=== PATIENT | female | born 1960 | race Caucasian/White ===

== ENCOUNTER 2020-10-13 13:33 | Emergency (ER) | payer OTHER, SELFPAY ==
[2020-10-13 13:37] VITALS: BP 149/72; PULSE 69; RESP 14; TEMP 37.1; O2SAT 100; BMI 19.4
--- NOTE | 2020-10-13 14:08 | DI.CT.S_ITS ---
PROCEDURE: CT HEAD/BRAIN WO CON INDICATIONS: Vision deficit TECHNIQUE: Noncontrast 4.5 mm thick angled axial sections acquired from the foramen magnum to the vertex, with coronal and sagittal reformats. For radiation dose reduction, the following was used: automated exposure control, adjustment of mA and/or kV according to patient size. COMPARISON: None. FINDINGS: Image quality: Excellent. CSF spaces: Basal cisterns are patent. No extra-axial fluid collections. The ventricles are symmetric in size and shape. Brain: No intracranial bleeds or masses. There is cerebral volume loss for age, with resultant ventricular and sulcal prominence. There are periventricular and deep white matter chronic small vessel ischemic changes. There is intracranial internal carotid artery atherosclerosis. Skull and face: Calvarium and visualized facial bones appear intact, without suspicious lesions. To the limits of the study, no focal orbital abnormality can be seen. Sinuses: Visualized sinuses and mastoids are clear. IMPRESSION: Normal noncontrast head CT for age, without an imaging explanation found for the patient's presenting symptoms. If it would be helpful for clinical management decision making, please consider a dedicated brain MRI (orbits protocol, without and with contrast) for further evaluation (assuming that there is no contraindication). Dictated by: Leon Carmona M.D. on 10/13/2020 at 14:26 Approved by: Leon Carmona M.D. on 10/13/2020 at 14:27
[2020-10-13 14:32] VITALS: BP 164/74; PULSE 68; RESP 18
--- NOTE | 2020-10-13 14:32 | ED_ITS ---
HPI - Neuro Symptoms/Deficit General Chief Complaint: Neuro Symptoms/Deficit Stated Complaint: streak in eye/sent by eye doctor/ava stroke Time Seen by Provider: 10/13/20 14:32 Source: patient Mode of arrival: Ambulatory Limitations: no limitations History of Present Illness HPI Narrative: This is a 60-year-old female comes emergency department with complaint of vision change in her right eye. Patient woke up with what she describes as a band which is green when her eyes closed and purple in her eyes open. She can see above and below it but not through the band. Patient states that it resolved but then returned. She does have a history of hypertension dyslipidemia. She takes a baby aspirin daily. She saw an information systems auditor on [place] which told her that there is possibly a change to the blood vessels. They told her they thought her retina looked normal. Patient denies any other symptoms. No headaches. No eye pain. No numbness, tingling or weakness. She has had vitreous detachment in the past. And was told she had a retinitis in her opposite eye in her 20s which they thought was maybe from a viral illness. On Anticoagulants: Yes (Aspirin 81mg today) Review of Systems Review of Systems ROS Unobtainable: All systems reviewed & are unremarkable except as noted in HPI and below Hematologic/Lymphatic On Anticoagulants: Yes (Aspirin 81mg today) Patient History Social History Smoking Status: Never smoker Smoking Status: Never smoker alcohol intake frequency: a few times a week Alcohol type: wine Substance Use Type: does not use Exam Narrative Exam Narrative: GEN: well nourished, well appearing female, alert and oriented x 3, patient appears to be in mild distress. HEENT: Atraumatic, pupils are equal round reactive to light, extraocular movements are intact, nares are clear, TMs are clear with no fluid, there is no conjunctival pallor. Throat is clear without any exudates, erythema, tonsillar enlargement or uvular deviation, normal speech. Visual acuity: see nurses note. General: no globe trauma Eyelids: normal inspection. Conjunctiva/Sclera: normal inspection. EOM: intact, no palsy/entrapment Pupils: PERRL, normal accomadation, pupil normal Anterior Chambers: normal inspection, no hypema Posterior: normal fundoscopic on right, left patient appears to have a crescent of opacification possible retinal tear. Nondilated eye exam HEART: Regular rate and rhythm without murmur, clicks, rubs. Pulses are equal in upper and lower extremities LUNGS:Lungs clear to auscultation, no wheezes, rales, crackles, chest moves symmetrically ABD:bowel sounds normal, soft, non-tender, no guarding, rebound, rigidity, no masses noted, no hepatosplenomegaly :No CVA tenderness MSCL: Non-tender, no muscle atrophy, muscles strength 5/5 upper and lower extremities, full range of motion, normal gait NEURO:CN 2-12 intact, sensation normal, finger nose finger test normal, heel camejo test normal, romberg normal Initial Vital Signs Initial Vital Signs: Vital Signs Temperature 98.8 F 10/13/20 13:37 Pulse Rate 69 10/13/20 13:37 Respiratory Rate 14 10/13/20 13:37 Blood Pressure 149/72 H 10/13/20 13:37 Pulse Oximetry 100 10/13/20 13:37 Scores NIH Stroke Scale Level of Conciousness: Alert, keenly responsive Ask month/age: Answers both questions correctly. Open/close eyes, close hand: Performs both tasks correctly Best gaze horizontal: Normal Visual lee: No visual loss Facial palsy: Normal symetrical movement Left arm drift: No drift for full 10 sec Right arm drift: No drift for full 10 sec Left leg drift: No drift for full 5 sec Right leg drift: No drift for full 5 sec Limb ataxia: Absent Sensory on face/arms/legs: Normal, no sensory loss Best language: No aphasia, normal Dysarthria: Normal Extinction or inattention: No abnormality Total NIH Stroke scale score: 0 Course Orders Ordered: ED Orders 10/13/20 13:55 Basic Metabolic Panel Stat CRP [C-Reactive Protein Quant] Stat Complete Blood Count AUTO DIFF Stat Erythrocyte Sedimentation Rate Stat 10/13/20 14:08 CT head/brain wo con Stat 10/13/20 15:06 EKG-12 Lead Stat Discontinued Medications Sodium Chloride (Normal Saline 0.9%) 1,000 mls @ 150 mls/hr IV CONT KATH Last Admin: 10/13/20 15:30 Dose: Not Given Documented by: KBRYERS Sodium Chloride (Normal Saline 0.9%) 1,000 mls @ 1,000 mls/hr IV BOLUS ONE Stop: 10/13/20 17:49 Last Admin: 10/13/20 17:23 Dose: Not Given Documented by: KBRYERS Consultations Consultation #1: Dr. Marsh, ophthalmology is happy to see the patient. Her lab work is not completed so they will return her to the department after their eye exam. Vital Signs Vital signs: Vital Signs - 8 hr 10/13/20 13:37 10/13/20 14:32 10/13/20 14:39 Temperature 98.8 F Pulse Rate 69 68 69 Respiratory Rate 14 18 14 Blood Pressure 149/72 H 164/74 H 164/70 H Pulse Oximetry 100 99 10/13/20 14:42 10/13/20 17:15 Temperature Pulse Rate 54 L Respiratory Rate 18 Blood Pressure 141/69 H 126/58 L Pulse Oximetry 100 MDM - Neuro Symptoms/Deficit Lab Data Result diagrams: 10/13/20 13:55 10/13/20 13:55 Labs: Lab Results 10/13/20 10/13/20 10/13/20 Range/Units 13:55 13:55 13:55 WBC 5.9 (4.5-11.0) X10^3/uL RBC 4.52 (4.0-5.2) X10^6/uL Hgb 13.9 (12.0-16.0) g/dL Hct 41.5 (36-46) % MCV 91.9 (80-100) fL MCH 30.9 (26-34) PG MCHC 33.6 (30-36) % RDW 13.5 (11.6-14.8) % Plt Count 219 (150-400) X10^3/uL Neut % (Auto) 70.1 (50-75) % Lymph % (Auto) 23.0 L (25-40) % [place] % (Auto) 5.4 (3-14) % Eos % (Auto) 0.9 L (2-4) % Baso % (Auto) 0.6 (0-2) % Neut # (Auto) 4200 (8100-4078) /uL Lymph # (Auto) 1400 (8638-1239) /uL [place] # (Auto) 300 (0-900) /uL Eos # (Auto) 100 (0-450) /uL Baso # (Auto) 0 (0-100) /uL ESR 7 (0-20) MM/HR Sodium (137-145) mmol/L Potassium (3.4-5.1) mmol/L Chloride (98-107) mmol/L Carbon Dioxide (22-32) mmol/L BUN (7-17) mg/dL Creatinine (0.52-1.04) mg/dL Estimated GFR (>60) mL/min BUN/Creatinine Ratio (6-22) Glucose (80-110) mg/dL Calcium (8.4-10.2) mg/dL C-Reactive Protein < 0.5 (<1.0) mg/dL 10/13/20 Range/Units 13:55 WBC (4.5-11.0) X10^3/uL RBC (4.0-5.2) X10^6/uL Hgb (12.0-16.0) g/dL Hct (36-46) % MCV (80-100) fL MCH (26-34) PG MCHC (30-36) % RDW (11.6-14.8) % Plt Count (150-400) X10^3/uL Neut % (Auto) (50-75) % Lymph % (Auto) (25-40) % [place] % (Auto) (3-14) % Eos % (Auto) (2-4) % Baso % (Auto) (0-2) % Neut # (Auto) (0052-0295) /uL Lymph # (Auto) (5234-9192) /uL [place] # (Auto) (0-900) /uL Eos # (Auto) (0-450) /uL Baso # (Auto) (0-100) /uL ESR (0-20) MM/HR Sodium 139 (137-145) mmol/L Potassium 4.1 (3.4-5.1) mmol/L Chloride 105 (98-107) mmol/L Carbon Dioxide 28 (22-32) mmol/L BUN 14 (7-17) mg/dL Creatinine 0.75 (0.52-1.04) mg/dL Estimated GFR > 60.0 (>60) mL/min BUN/Creatinine Ratio 18.7 (6-22) Glucose 116 H (80-110) mg/dL Calcium 9.5 (8.4-10.2) mg/dL C-Reactive Protein (<1.0) mg/dL MDM Narrative Medical decision making narrative: This is a 60-year-old female comes emergency department with complaint of a streak in her right eye with vision change. Patient was sent by an information systems auditor for possible stroke verses retinitis. Patient's head CT is negative. She had concerning eye exam for myself so I spoke with our local bindery machine setter who kindly saw the patient. Had a negative dilated eye exam with no changes to the vessels on his exam either. He suspected possibly ophthalmology come migraine but we did discuss that ESR CRP was included these are negative today. Labs do not show any other acute changes. Discussed with patient and plan for follow-up with outpatient. We also discussed they can potentially have TIA but seems less likely based on her symptoms and findings today she could increase her aspirin daily until she sees her primary care. Discharge Plan Departure Patient Disposition: Home Clinical Impression: Alteration in vision Activity Restrictions/Additional Instructions: Follow-up with your physician. Today your head CT is negative, your labs do not show any acute changes, including negative ESR and CRP. You also had a secondary evaluation by ophthalmology with Dr. Marsh who did not find any acute changes today. My suspicion for retinal artery occlusion is low at this time but it would be appropriate to take a daily aspirin for prevention. Please return for new or worsening symptoms, sudden vision loss, severe headaches, numbness, tingling or weakness, difficulty with speech or other new or concerning symptoms. Referrals: Jens Marsh MD [Physician] - Joanne Hernandez MD [Primary Care Provider] -
[2020-10-13 14:39] VITALS: BP 164/70; PULSE 69; RESP 14; O2SAT 99
[2020-10-13 14:42] VITALS: BP 141/69
[2020-10-13 14:47] LABS: Erythrocyte Sedimentation Rate 7 MM/HR (0-20)
[2020-10-13 15:19] LABS: C-Reactive Protein Quant < 0.5 mg/dL (<1.0)
[2020-10-13 16:48] LABS: Add Manual Diff / Slide Review NO; Basophils Absolute Auto 0 /uL (0-100); Basophils Percent Auto 0.6 % (0-2); Eosinophils Absolute Auto 100 /uL (0-450); Eosinophils Percent Auto 0.9 % (2-4); Hematocrit 41.5 % (36-46); Hemoglobin 13.9 g/dL (12.0-16.0); Lymphocytes Absolute Auto 1400 /uL (1100-4500); Mean Corpuscular HGB Conc 33.6 % (30-36); Mean Corpuscular Hemoglobin 30.9 PG (26-34); Mean Corpuscular Volume 91.9 fL (80-100); Monocytes Absolute Auto 300 /uL (0-900); Monocytes Percent Auto 5.4 % (3-14); Neutrophils Absolute Auto 4200 /uL (1500-7000); Neutrophils Percent Auto 70.1 % (50-75); Platelet Count 219 X10^3/uL (150-400); Red Blood Cell Count 4.52 X10^6/uL (4.0-5.2); Red Cell Distribution Width 13.5 % (11.6-14.8); White Blood Cell Count 5.9 X10^3/uL (4.5-11.0)
[2020-10-13 17:06] LABS: BUN Creatinine Ratio 18.7 (6-22); Blood Urea Nitrogen 14 mg/dL (7-17); Calcium 9.5 mg/dL (8.4-10.2); Carbon Dioxide 28 mmol/L (22-32); Chloride 105 mmol/L (98-107); Estimated Glomerular Filt Rate > 60.0 mL/min (>60); Glucose 116 mg/dL (80-110); HEMOLYSIS < 15 (0-50); Potassium 4.1 mmol/L (3.4-5.1); Sodium 139 mmol/L (137-145)
[2020-10-13 17:15] VITALS: BP 126/58; PULSE 54; RESP 18; O2SAT 100
== END 2020-10-13 17:34 | disposition home or self-care (01) ==
PROVIDERS: Emergency Provider Emergency Medicine; PCP Family Medicine
DX: H54.7 Unspecified visual loss (principal); Z20.822 Contact with and (suspected) exposure to COVID-19
CPT/HCPCS: 36415; 70450; 80048; 85025; 85651; 86140; 93005; 93010; 99284

== ENCOUNTER → 2020-10-26 12:43 | Outpatient (CLI) | payer OTHER, SELFPAY ==
--- NOTE | 2020-10-26 12:44 | DI.US.S_ITS ---
PROCEDURE: US CAROTID DOPPLER BI INDICATIONS: VISUAL DISTURBANCES TECHNIQUE: Color and pulse Doppler interrogation was performed of both carotid systems, with image documentation and velocity measurements. COMPARISON: None. FINDINGS: Stenosis calculations are based on SRU (Society of Radiologists in Ultras[employer]) criteria. Right side: Brachial blood pressure: 116/69 mm Hg. Common carotid artery peak systolic velocity: 139 cm/sec. Internal carotid artery peak systolic velocity: 93 cm/sec. Internal carotid artery end diastolic velocity: 28 cm/sec. External carotid artery peak systolic velocity: 117 cm/sec. ICA/CCA peak systolic ratio: 0.7 . Morales scale imaging description: Minimal soft plaque in the distal common carotid artery. No significant stenoses. Normal waveforms. Percent internal carotid artery stenosis: Less than 50% . Vertebral artery: Flow direction is antegrade. Left side: Brachial blood pressure: 118/69 mm Hg. Common carotid artery peak systolic velocity: 159 cm/sec. Internal carotid artery peak systolic velocity: 72 cm/sec. Internal carotid artery end diastolic velocity: 24 cm/sec. External carotid artery peak systolic velocity: 167 cm/sec. ICA/CCA peak systolic ratio: 0.5 . Morales scale imaging description: Trace soft plaque in the distal common carotid artery. Normal waveforms. No visible stenosis. Percent internal carotid artery stenosis: Less than 50% . Vertebral artery: Flow direction is antegrade. IMPRESSION: 1. No hemodynamically significant stenosis in either carotid system. 2. Antegrade vertebral artery flow bilaterally. Dictated by: Brittany Gomez M.D. on 10/27/2020 at 17:40 Approved by: Brittany Gomez M.D. on 10/27/2020 at 18:11
== END ==
PROVIDERS: PCP Family Medicine; Referring Provider Family Medicine; Visit Provider Family Medicine
DX: H53.9 Unspecified visual disturbance (principal)
CPT/HCPCS: 93880

== ENCOUNTER → 2022-05-31 11:03 | Outpatient (CLI) | payer OTHER, SELFPAY ==
--- NOTE | 2022-05-31 | DI.RAD.S_ITS ---
PROCEDURE: XR CERVICAL SPINE MIN 6V INDICATIONS: chronic neck pain, history of trauma TECHNIQUE: 7 views of the cervical spine were acquired. COMPARISON: None. FINDINGS: Bones: No fractures or dislocations to the T1 level. No suspicious bony lesions. Disc space narrowing C5-6. Flexion extension images shows no evidence of segmental instability. Oblique images show no foraminal stenosis Soft tissues: Prevertebral soft tissues are normal in thickness. IMPRESSION: Degenerative disc disease at C5-6 without segmental instability or foraminal stenosis Approved by: Osvaldo Perez M.D. on 05/31/2022 at 14:22
== END ==
PROVIDERS: PCP Family Medicine; Referring Provider Family Medicine; Visit Provider Family Medicine
DX: M50.322 Other cervical disc degeneration at C5-C6 level (principal)
CPT/HCPCS: 72052